=== PATIENT | male | born 1960 | race African-American/Black ===

== ENCOUNTER 2017-04-16 06:18 | Day surgery (SDC) | payer OTHER ==
[2017-04-15 13:04] VITALS: BMI 25.7
[2017-04-16] MEDS ORDERED: MIDAZOLAM HCL 2 MG/2 ML SINGLE DOSE VIAL ONE ×3 (07:10→07:26)
[2017-04-16] MEDS ORDERED: PROPOFOL 20 ML ONE ×2 (07:10)
[2017-04-16] MEDS ORDERED: SUCCINYLCHOLINE CHLORIDE 200 MG/10 ML VIAL ONE (07:10)
[2017-04-16] MEDS ORDERED: DESFLURANE GAS 240 ML BOTTLE IH ONE (07:14)
[2017-04-16] MEDS ORDERED: ONDANSETRON 4 MG/2 ML VIAL IVPUSH PRN (07:16)
[2017-04-16] MEDS ORDERED: oxyCODONE HCL 5 MG TABLET PO PRN ×2 (07:16)
[2017-04-16] MEDS ORDERED: BUPIVACAINE HCL/PF 0.5% (5MG/ML) 10 ML VIAL ONE (07:25)
[2017-04-16] MEDS ORDERED: LACTATED RINGERS SOLUTION 1,000 ML IV SCH (07:30)
--- NOTE | 2017-04-16 08:21 | HP ---
[facility]ellite [facility] - Chief Complaint Chief Complaint: left hand numbness, weakness History of Present Illness: as above History Source: Patient Limitations to Obtaining History: No Limitations - Past Medical History Allergies/Adverse Reactions: Allergies Allergy/AdvReac Type Severity Reaction Status Date / Time No Known Allergies Allergy Verified 04/16/17 06:40 - Current Medications Current Medications: Home Medications Medication Instructions Recorded Amlodipine Bes/Olmesartan Med 1 each PO DAILY 04/15/17 [Amish 10-40 mg Tablet] Hydrochlorothiazide [Hctz -] 12.5 mg PO DAILY 04/15/17 Satellite Physical Exam - Physical Examination Vital Signs: Vital Signs Period Temp Pulse Resp BP Sys/Padilla Pulse Ox Last 24 Hr 98.0 F 85 16 139/95 99 General Appearance: Well Nourished ENT: Clear Lung: Clear to auscultation Heart: Regular rate & rhythm Breasts: Soft Abdomen: Soft Extremities: No edema Satellite Impression/Plan - Impression/Plan Impression: left cubital tunnel syndrome Operative Procedure: left ulnar nerve transposition Date to be Performed: 04/16/17
[2017-04-16] MEDS ORDERED: ceFAZolin SODIUM 1 GM VIAL ONE (08:27)
[2017-04-16] MEDS ORDERED: ceFAZolin SODIUM 1 GM VIAL IVPB ONE ×2 (08:30)
--- NOTE | 2017-04-16 09:33 | OP ---
Operative Note - Note: Operative Date: 04/16/17 Pre-Operative Diagnosis: severe left cubital tunnel syndrome Operation: left subcutaneous ulnar nerve transposition Post-Operative Diagnosis: Same as Pre-op Surgeon: Buzz Lopez Restaurant Attendant: Candelario Monaco Anesthesiologist/DIRECTIONAL DRILLER: Nae Soto Anesthesia: Local, MAC Estimated Blood Loss (mls): 0 Drains, Volume Out (mls): 0 Blood Volume Replaced (mls): 0 Fluid Volume Replaced (mls): 500 Operative Report Dictated: Yes
[2017-04-16 10:28] VITALS: TEMP 97.7
--- NOTE | 2017-04-16 11:26 | OP ---
DATE OF OPERATION: 04/16/2017 PREOPERATIVE DIAGNOSIS: Severe left cubital tunnel syndrome. POSTOPERATIVE DIAGNOSIS: Severe left cubital tunnel syndrome. PROCEDURE: Left subcutaneous ulnar nerve transposition. SURGEON: Buzz Lopez MD ASSISTANTS: Candelario Monaco MD. ANESTHESIOLOGIST: Karime Doty ANESTHESIA: Left interscalene block. DRAINS: None. COMPLICATIONS: None. BLOOS LOSS: Maybe 20 mL. BLOOD GIVEN: None. FLUID REPLACEMENT: PlasmaLyte, 500 mL. SPECIMEN: None. 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 He has severe ulnar wasting, severe interosseous weakness. He cannot cross his fingers. He cannot abduct his fingers. He has got significant sensory deficits in the ulnar redistribution. After extensive preoperative discussions, we went over the potential risks, complications, alternatives, and benefits of surgery versus nonsurgical treatment. The patient understands that he will not get complete relief of the symptoms, that he will have a continuation of his numbness, weakness, ulnar atrophy. My hope is that we will stop the symptoms from getting worse and also that it will improve his symptoms to some degree. He understands and has realistic expectations. DESCRIPTION OF PROCEDURE: The patient was brought to the operating room, peripheral IV placed and intravenous sedation was given. IV Ancef, 2 g, was given. Left interscalene block was performed. Left upper extremity was prepped and draped in sterile fashion, elevated, exsanguinated with an Esmarch bandage and the tourniquet inflated to 250 mm of mercury. A curvilinear incision was marked out over the medial epicondyle and made with a No. 15 scalpel blade. Subcutaneous hemostasis was achieved with a bipolar cautery. Dissection done with Littler scissors and a fresh No. 15 scalpel blade down to the medial epicondyle. Patient seemed to have a lot of fibrotic tissue in this area. Weitlaner retractors were then placed into the wound. I then dissected an anterior flap between the deep adipose tissue and the flexor pronator mass fascia. Once there was an adequate new bed for the transposition, I then identified the ulnar nerve proximally, proximal to the cubital tunnel. I did circumferential dissection around it, cauterized small vessels with the bipolar cautery, and put a Arvind drain with irrigation around it for protection and retraction. Then, using Weitlaner retractors and an [facility] ret[facility] for additional visualization and the [place] drain for protection and retraction, I dissected free the soft tissues through the 2 heads of the FCU and Osbornes ligament . I dissected through the triceps muscle and through the deep fascia going more proximally. 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 This muscle tissue was dissected free from the ulnar nerve. I then used my finger and a Robin elevator to make sure that the dissection was free, what was discussed completed proximal to the cubital tunnel, and that portion was ready for transposition, which it was. Next, being very careful, I used the Littler scissors to open up the roof of the cubital tunnel in circumferential dissection, cauterized small vessels, moved distally, opened up the two heads of the FCU and Osbornes ligament. In this area, there was significant compression and a significant hourglass deformity of the ulnar nerve. The ulnar nerve in this area looked quite pale compared to its color at the cubital tunnel, and it looked to be of only about 70% of the diameter of the ulnar nerve at the level of the cubital tunnel. This signified to me significant compression distal to the cubital tunnel. I then freed up its path through the two heads of the FCU, used my finger and the Robin elevator to check and make sure that it was completed. I continued to do circumferential dissection, was able to transpose the nerve anterior to the axis of rotation of the elbow/medial epicondyle, and was in a good position with no points of compression. There was no significant medial intramuscular septum, and I opened up the fascia of the FCU a bit. The area was copiously irrigated and washed out, the ulnar nerve put in its new position, and the deep adipose tissue tacked down to the medial epicondyle with 2-0 Vicryl sutures. I then checked its position, it looked quite good, and the sling was holding it in place. Then, I closed the deep dermal layer with 2-0 Vicryl sutures and final skin reapproximation was done with a running subcuticular 4-0 Biosyn stitch. It was washed and dried. Steri-Strips applied, 4 x 4 gauze, Webril, and a 5-inch Ortho-Glass posterior splint was applied, wrapped with two Cobans, not too tight. The tourniquet was taken down after a total tourniquet time of 41 minutes. There were no complications during the case. The patient tolerated the procedure quite well and was brought to the ambulatory recovery room in stable condition. Traci [id number]
[2017-04-16 13:34] VITALS: BP 143/62; PULSE 67
== END 2017-04-16 13:50 | disposition home or self-care (01) ==
LOC: JASU-SURG 06:18
PROVIDERS: ATTEND Orthopaedic Surgery
PROC: 01S40ZZ Reposition Ulnar Nerve, Open Approach (ICD-10-PCS; principal; 2017-04-16 08:00)
DX: G56.22 Lesion of ulnar nerve, left upper limb (principal)
CPT/HCPCS: 94760